=== PATIENT | female | born 1990 | race Hispanic/Latino ===

== ENCOUNTER 2020-11-05 20:35 | Day surgery (SDC) | payer OTHER ==
[2020-11-05 21:07] VITALS: BMI 51.9
[2020-11-05] MEDS ORDERED: hydrALAZINE 20 MG/ML VIAL SLOW IVP PRN (21:48)
== END 2020-11-06 02:40 | disposition home or self-care (01) ==
LOC: CSHLD/OP 20:35
PROVIDERS: ATTEND Obstetrics & Gynecology
DX: O26.853 Spotting complicating pregnancy, third trimester (principal); O34.219 Maternal care for unspecified type scar from previous cesarean delivery; Z3A.28 28 weeks gestation of pregnancy
CPT/HCPCS: 76815; 99283

== ENCOUNTER 2025-07-18 20:00 | Emergency (ER) | payer BC, OTHER ==
[2025-07-18] MEDS ORDERED: Acetaminophen 500 MG TAB ONE (20:25)
[2025-07-18 20:40] LABS: Glucose, Urine (Dipstick) Normal (Negative); Leukocyte 25 (Negative); Protein, Urine (Dipstick) 100 mg/dl (Neg-Trace); Specific Gravity, Urine 1.025 (1.005-1.030)
[2025-07-18 20:41] LABS: CAUTI Indications for Culture Pelvic or flank pain; RBC/HPF 0-3 HPF (0-3); WBC/HPF 0-3 HPF (0-3)
[2025-07-18 20:42] LABS: Bacteria/HPF 1+ HPF (None Seen); Other Microscopic Description Less than 2 mL rec'd; Pregnancy Test - Urine (BHCG) Negative (Negative); Pregu Control Background? CLEAR/WHITE (CLR/WHITE); Pregu Control Bar Appear? YES (CONTROL BAR)
[2025-07-18 20:43] LABS: Urine Culture Reflex No No
[2025-07-18] MEDS ORDERED: cefTRIAXone (ROCEPHIN) 1 GM VIAL ONE (21:03)
== END 2025-07-18 21:43 | disposition home or self-care (01) ==
LOC: CSHERS 20:00
DX: S33.5XXA Sprain of ligaments of lumbar spine, initial encounter (principal); N83.201 Unspecified ovarian cyst, right side; N39.0 Urinary tract infection, site not specified; E66.01 Morbid (severe) obesity due to excess calories; I10 Essential (primary) hypertension; Z79.899 Other long term (current) drug therapy; V49.40XA Driver injured in collision with unspecified motor vehicles in traffic accident, initial encounter; Y92.410 Unspecified street and highway as the place of occurrence of the external cause
CPT/HCPCS: 74176; 81001; 81025; 96372; J0696